=== PATIENT | female | born 1965 | race Caucasian/White ===

== ENCOUNTER 2024-01-10 05:30 | Day surgery (SDC) | payer MEDICARE ==
[~2024-01-10] VITALS: Ht 170.2 cm; Wt 116.8 kg
[~2024-01-10 05:30] MED LIST: AMOX TR-K CLV1 EAC1 PO; ASPIRIN325 MG PO; BENICAR40 MG PO; COREG12.5 MG PO; CRESTOR20 MG PO; DOXYCYCLINE HY100 MG PO; GLUCOPHAGE XR500 MG PO; HYDROCHLOROTH12.5 M1 PO; IBUPROFEN600 MG PO; ISOSORBIDE MONO30 MG PO; LACTATED RINGER'S 1,000 ML IV SCH; LEXAPRO20 MG PO; LIPITOR40 MG PO; LOW DOSE ASPIRI81 MG PO; METOPROLOL SUCC50 MG PO; NEURONTIN100 MG PO; NORVASC5 MG PO; OXYCODON-ACETA1 EAC2 PO; RYBELSUS14 MG PO; ZIAC 2.5-6.25 MG1 EA PO
[2024-01-10 05:55] VITALS: BP 133/65
[2024-01-10] MEDS ORDERED: KETOROLAC TROMETHAMINE 30 MG/ML VIAL ONE ×2 (06:11→06:37)
[2024-01-10] MEDS ORDERED: ACETAMINOPHEN 1,000 MG/100 ML VIAL ONE (06:37)
[2024-01-10] MEDS ORDERED: propofoL 200 MG/20 ML VIAL ONE (06:37)
[2024-01-10] MEDS ORDERED: fentaNYL citrate 100 MCG/2 ML VIAL ONE (06:37)
[2024-01-10] MEDS ORDERED: LIDOCAINE HCL 2% 5 ML SDV ONE (06:37)
[2024-01-10] MEDS ORDERED: ondansetron HCL 4 MG/2 ML VIAL ONE (06:37)
[2024-01-10] MEDS ORDERED: MIDAZOLAM HCL 2 MG/2 ML VIAL ONE (06:54)
[2024-01-10] MEDS ORDERED: IBLOOD GLUCOSE TEST STRIP 1 EA TEST VI PRN ×2 (07:00→07:45)
[2024-01-10] MEDS ORDERED: LIDOCAINE HCL 1% 5 ML SDV INJ ONE (07:00)
[2024-01-10] MEDS ORDERED: CEFAZOLIN SODIUM 2 GM/20 ML SYR IV SCH (07:00)
[2024-01-10] MEDS ORDERED: PHENYLEPHRINE HCL 10 MG/ML VIAL ONE (07:02)
[2024-01-10] MEDS ORDERED: CELECOXIB200 MG PO (07:27)
[2024-01-10] MEDS ORDERED: HYDROCODON-ACE1 EA10 PO (07:28)
[2024-01-10] MEDS ORDERED: HYDROCODONE/ACETA 5/325 TAB PO PRN (07:30)
--- NOTE | 2024-01-10 07:34 | NUR ---
ROUNDS. PT GONE FOR PROCEDURE. PROVIDED PRAYER.
--- NOTE | 2024-01-10 07:43 | NUR ---
01/10/24 0743 Amos,Jacey 0724 PT ARRIVED TO PACU ON 6L VIA MASK, RESP EVEN AND UNLABORED. 0728 PT WAKES TO TACTILE STIMULI AND O2 REMOVED. PT DENIES NAUSEA AND PAIN. 0734 PT ASLEEP AND PERIOD OF APNEA NOTED, O2 DECREASED TO 88%. PT WAKES EASILY AND IS ENCOURAGED TO DEEP BREATHE AND HOB INCREASED SLIGHTLY. RIGHT KNEE ON PILLOW AND ELEVATED SLIGHTLY. 0735 2L NC PLACED DUE TO O2 SAT 86% WHEN ASLEEP AND SMALL AMOUNT OF SNORING NOTED. O2 INCREASED TO HIGH 90S WITH DEEP BREATHING. 0743 PT RESTING AND WAKES OFF AND ON, O2 SAT REMAINS MID TO HIHG 90S ON 2L.
[2024-01-10] MEDS ORDERED: droPERidol 5 MG/2 ML VIAL IV PRN (07:45)
[2024-01-10] MEDS ORDERED: ondansetron HCL 4 MG/2 ML VIAL IV PRN (07:45)
[2024-01-10] MEDS ORDERED: fentaNYL citrate 100 MCG/2 ML VIAL IV PRN (07:45)
[2024-01-10] MEDS ORDERED: PROCHLORPERAZINE EDISYLATE 10 MG/2 ML VIAL IV PRN (07:45)
[2024-01-10] MEDS ORDERED: HYDROmorphone HCL 1 MG/ML SYR IV PRN (07:45)
[2024-01-10] MEDS ORDERED: NALOXONE HCL 0.4 MG SYR IV PRN (07:45)
[2024-01-10 07:56] VITALS: BP 122/57
[2024-01-10] MEDS ORDERED: CELECOXIB 200 MG CAP PO SCH (08:00)
--- NOTE | 2024-01-10 08:17 | NUR ---
PT ARRIVED BACK TO DAY SURGERY FROM PACU AT APPROX 0755 ON 2L/NC WITH SATURATIONS IN THE UPPER 90'S. OXYGEN TURNED OFF AND MONITOR LEFT IN PLACE TO ENSURE PT IS MAINTAINING ADAQUATE SATURATIONS ON RA. THROUGHOUT ASSESSMENT, PTS SATURATIONS WERE STABLE AT 94% OR GREATER. REPORT RECEIVED FROM FIELD COURT RESEARCHER JIM. 2ML EBL. DRESSINGS VISUALIZED WITH FIELD COURT RESEARCHER. INCISION IS COVERED WITH ADAPTIC, ABD, AND SECURED W/PARTHA WRAP. NO SIGNS OF BLEEDING OBSERVED ON DRESSING. NO PAIN REPORTED. PT GIVEN ORDERED CELEBREX, ICE WATER, AND APPLESAUCE. CALL LIGHT LEFT WITHIN PTS REACH. PT DENIES URGE TO VOID. RLE IS ELEVATED ON PILLOWS IN BED WITH RLE AT HEART LEVEL.
[2024-01-10 08:48] VITALS: BP 123/64
--- NOTE | 2024-01-10 08:51 | NUR ---
IN PT ROOM FOR ASSESSMENT AND VS. PT REPORTS NO PAIN OR NAUSEA AT THIS TIME. PT REMAINS ON RA W/O2 >90% VIA CONT. PULSE OX. PT RESPIRATIONS ARE EVEN AND UNLABORED. PT SON IN ROOM AT BEDSIDE AT THIS TIME. PT IS A&O. DRESSING REMAINS C/D/I, NO SIGNS OF BLEEDING AT THIS TIME. PT TOLERATED ORAL APPLESAUCE AND ICE WATER W/OUT DIFFICULTY SWALLOWING. PT REPORTS NO NEED TO URINE VOID AT THIS TIME, ICE WATER REFILLED, PT ENCOURAGED TO ORAL INTAKE. CALL LIGHT WITHIN REACH, NO FURTHER NEEDS AT THIS TIME.
--- NOTE | 2024-01-10 09:20 | NUR ---
PT PRESSES CALL LIGHT IN REPORT OF NEED TO VOID, THIS RN HAS PT SIT AT BEDSIDE. PT REPORTS NO NAUSEA OR DIZZINESS, PT STANDS AT BEDSIDE AND REPORTS NO NEW NAUSEA/DIZZINESS. THIS RN STANDBY ASSIST W/PT TO RESTROOM FOR URINE VOID OF 100 ML CLEAR/YELLOW URINE. PT GAIT IS STEADY. PT STATES NO NEW PAIN POST AMBULATION AND NO NEW SIGNS OF BLEEDING AT THIS TIME. CALL LIGHT WITHIN REACH, PT GETTING DRESSED AT THIS TIME.
[2024-01-10 09:33] VITALS: BP 129/63
--- NOTE | 2024-01-10 09:45 | NUR ---
IN PT ROOM FOR DISCHARGE EDUCATION AND VS. PT REPORTS NO PAIN OR NAUSEA AT THIS TIME. VS TAKEN. DISCHARGE EDUCATION PROVIDED, PT STATES NO FURTHER QUESTIONS AT THIS TIME. PT OFF OF UNIT VIA WC TO PASSENGER SIDE OF SON'S VEHICLE. STANDBY ASSIST PT INTO VEHICLE. ALL BELONGINGS IN PT POSSESSION AT THIS TIME. PT REPORTS NO FURTHER QUESTIONS OR NEEDS AT THIS TIME.
--- NOTE | 2024-01-13 07:20 | OR ---
[facility] [address] [place], [place] [address] Signed DATE OF OPERATION: 01/10/2024 SURGEON: Navya Cyr MD PREOPERATIVE DIAGNOSIS: Medial meniscus tear, right knee. POSTOPERATIVE DIAGNOSIS: Grade 4 chondromalacia, right lateral tibial plateau. PROCEDURE PERFORMED: Right knee arthroscopy with debridement of chondral flaps, tibia. FIELD CARE ADVOCATE: None. ANESTHESIA: General. BLOOD LOSS: Minimal. BRIEF HISTORY: Brittany is a 59-year-old female with pain and giving out in her knee. MRI was suggestive of posteromedial meniscus tear. Risks and benefits of operative treatment were discussed with her after nonoperative treatment had failed to control her symptoms. She elected to proceed. DESCRIPTION OF PROCEDURE: Once consent was obtained, she was taken to the operating room. After adequate anesthesia, she was placed on operating room table. The left leg was flexed, abducted and externally rotated on a well-padded leg irving. The right was placed in well-padded proximal thigh leg irving with no tourniquet. The leg was then prepped and draped in a standard sterile fashion. Portal sites were injected with 0.25% Marcaine with epinephrine. The standard inferolateral and superolateral portals were made and the scope was introduced in the knee. ARTHROSCOPIC FINDINGS: Moderate synovitis was noted throughout the knee. The patella was noted to be tilted laterally just a bit. The chondral surfaces were relatively intact. Medial and lateral Electronically Signed By: NAVYA CYR MD 01/13/24 0720 PATIENT NAME: BRITTANY CONCEPCION OPERATIVE REPORT DATE OF : 67 REPORT #: [id number] PHYSICIAN: NAVYA CYR MD PCP: MICHAEL STAHL MD REPORT IS CONFIDENTIAL AND NOT TO BE RELEASED WITHOUT AUTHORIZATION [facility] [address] [place], [place] [address] Signed gutters were clear. ACL and PCL were intact. Medial compartment showed no meniscus tear and no significant chondromalacia. The lateral compartment showed grade 4 chondromalacia to the tibia with large posterior based flaps. The meniscus was intact. The femur showed grade 1 softening. DESCRIPTION OF OPERATION: Standard inferomedial portal was made after localization using a needle. The diagnostic arthroscopy was undertaken and the medial meniscus was visualized and palpated using the [place] on both the superior and undersurfaces. No meniscus tear was identified. The large chondral flaps on the tibial side were unstable and likely the cause of her symptoms. These were removed using the shaver. Again, the lateral meniscus was visualized and palpated and no meniscus tear was noted. The scope was withdrawn after cleaning all debris from the knee. The portals were closed with 3-0 nylon and the knee was injected with 60 mg of Toradol. The wounds were then dressed with Adaptic, ABD, and Gage wrap. She tolerated the procedure well. All sponge, needle, and instrument counts were correct. Navya Cyr MD BA/MODL /[id number] Copies: ~ Electronically Signed By: NAVYA CYR MD 01/13/24 0720 PATIENT NAME: BRITTANY CONCEPCION OPERATIVE REPORT DATE OF : 67 REPORT #: [id number] PHYSICIAN: NAVYA CYR MD PCP: MICHAEL STAHL MD REPORT IS CONFIDENTIAL AND NOT TO BE RELEASED WITHOUT AUTHORIZATION
== END 2024-01-10 09:45 | disposition home or self-care (01) ==
LOC: DS 05:30
PROVIDERS: ATTEND Specialist
PROC: 0SBC4ZZ Excision of Right Knee Joint, Percutaneous Endoscopic Approach (ICD-10-PCS; principal; 2024-01-10 07:00)
DX: S83.241A Other tear of medial meniscus, current injury, right knee, initial encounter (principal); E11.9 Type 2 diabetes mellitus without complications; I10 Essential (primary) hypertension
CPT/HCPCS: 01400; J0131; J0690; J1885; J2001; J2250; J2371; J2405; J2704; J3010; J7121

== ENCOUNTER 2024-01-18 15:13 | Emergency (ER) | payer MEDICARE ==
[~2024-01-18] VITALS: Ht 170.2 cm; Wt 116.1 kg
[~2024-01-18 15:13] MED LIST changes: +CELECOXIB200 MG PO; +HYDROCODON-ACE1 EA10 PO; -LACTATED RINGER'S 1,000 ML IV SCH
[2024-01-18] MEDS ORDERED: HYDROCODONE/ACETA 7.5/325 TAB PO ONE (19:15)
[2024-01-18] MEDS ORDERED: IBUPROFEN 400 MG TAB PO ONE (19:15)
[2024-01-18 19:31] VITALS: BP 132/90
== END 2024-01-18 19:31 | disposition home or self-care (01) ==
LOC: ED 15:13
DX: S80.01XA Contusion of right knee, initial encounter (principal); S40.012A Contusion of left shoulder, initial encounter; W10.9XXA Fall (on) (from) unspecified stairs and steps, initial encounter; I10 Essential (primary) hypertension; E78.5 Hyperlipidemia, unspecified; Z79.899 Other long term (current) drug therapy; Z91.040 Latex allergy status
CPT/HCPCS: 73030; 73560; A9270

== ENCOUNTER 2024-05-15 15:00 | Emergency (ER) | payer MEDICARE ==
[~2024-05-15] VITALS: Ht 170.2 cm; Wt 122.3 kg
[~2024-05-15 15:00] MED LIST changes: -HYDROCHLOROTH12.5 M1 PO; +HYDROCHLOROTHIA25 MG PO
--- OUTSIDE RECORDS SUMMARY | 2024-05-15 15:01 | XMS ---
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 ENiecy VISIT COUNT (12 MO.) 2 ANIVAL Marcelo TOTAL 2 NOTE: Visits indicate total known visits. ED/UCC VISIT TRACKING (12 MO.) 05/15/2024 15:00 [facility] TYPE: Emergency COMPLAINT: - L ABD PAIN 01/18/2024 15:13 [facility] TYPE: Emergency COMPLAINT: - FALL DIAGNOSES: - Contusion of left shoulder, initial encounter - Contusion of right knee, initial encounter - Essential (primary) hypertension - Fall (on) (from) unspecified stairs and steps, initial encounter - Hyperlipidemia, unspecified - Latex allergy status - Other usp (current) drug therapy - Pain in right knee INPATIENT VISIT TRACKING (12 MO.) No inpatient visits to display in this time frame [email or web address]
[2024-05-15] MEDS ORDERED: VALTREX1000 MG PO (15:25)
[2024-05-15] MEDS ORDERED: CYCLOBENZAPRINE10 MG PO (15:28)
[2024-05-15 15:40] VITALS: BP 172/94
== END 2024-05-15 15:40 | disposition home or self-care (01) ==
LOC: ED 15:00
DX: R20.2 Paresthesia of skin (principal); I10 Essential (primary) hypertension; E78.5 Hyperlipidemia, unspecified; F41.9 Anxiety disorder, unspecified; Z91.040 Latex allergy status; Z79.899 Other long term (current) drug therapy
CPT/HCPCS: 99283

== ENCOUNTER 2024-07-21 21:00 | Emergency (ER) | payer MEDICARE ==
[~2024-07-21] VITALS: Ht 170.2 cm; Wt 122.6 kg
[~2024-07-21 21:00] MED LIST changes: +CYCLOBENZAPRINE10 MG PO; +VALTREX1000 MG PO
[2024-07-21] MEDS ORDERED: DEXAMETHASONE SOD PHOS 10 MG/ML VIAL IM ONE (21:30)
[2024-07-21] MEDS ORDERED: METHYLPREDNISOLO4 M1 PO (21:36)
[2024-07-21] MEDS ORDERED: ACETAMINOPHEN 500 MG TAB PO ONE (21:45)
[2024-07-21 22:18] VITALS: BP 142/78
== END 2024-07-21 22:19 | disposition home or self-care (01) ==
LOC: ED 21:00
DX: G56.22 Lesion of ulnar nerve, left upper limb (principal); I10 Essential (primary) hypertension; Z91.040 Latex allergy status; Z79.899 Other long term (current) drug therapy
CPT/HCPCS: 73080; 96372; 99283-25; A9270; J1100

== ENCOUNTER 2024-11-16 18:13 | Emergency (ER) | payer MEDICARE ==
[~2024-11-16] VITALS: Ht 170.2 cm; Wt 118.2 kg
[~2024-11-16 18:13] MED LIST changes: +METHYLPREDNISOLO4 M1 PO
[2024-11-16] MEDS ORDERED: OXYCODONE/APAP 5/325 TAB PO ONE (21:00)
[2024-11-16] MEDS ORDERED: GABAPENTIN100 MG PO (21:30)
[2024-11-16] MEDS ORDERED: HYDROCODON-ACE1 EA10 PO (22:22)
[2024-11-16] MEDS ORDERED: HYDROCODONE BIT/ACETAMINOPHEN 5/325 MG 1 TAB HOME.PACK PO ONE (22:30)
[2024-11-16 23:31] VITALS: BP 155/86
== END 2024-11-16 23:45 | disposition home or self-care (01) ==
LOC: ED 18:13
DX: S82.842A Displaced bimalleolar fracture of left lower leg, initial encounter for closed fracture (principal); W18.39XA Other fall on same level, initial encounter; I10 Essential (primary) hypertension; E78.5 Hyperlipidemia, unspecified; Z91.040 Latex allergy status; Z79.899 Other long term (current) drug therapy
CPT/HCPCS: 29515; 73610; 73700; 99284-25; A9270

== ENCOUNTER 2024-11-23 09:45 | Day surgery (SDC) | payer MEDICARE ==
[~2024-11-23] VITALS: Ht 167.6 cm; Wt 118.2 kg
[~2024-11-23 09:45] MED LIST changes: +ASPIRIN81 MG PO; +CEFAZOLIN SODIUM 2 GM/20 ML SYR IV SCH; +GABAPENTIN 600 MG TAB PO SCH; +GABAPENTIN100 MG PO; +IBLOOD GLUCOSE TEST STRIP 1 EA TEST VI PRN; +LACTATED RINGER'S 1,000 ML IV SCH; +LIDOCAINE HCL 1% 5 ML SDV INJ ONE; +OXYCODONE HCL5 MG PO
[2024-11-23 10:07] VITALS: BP 126/62
[2024-11-23] MEDS ORDERED: LIDOCAINE HCL 2% 5 ML SDV ONE ×2 (10:26→11:04)
[2024-11-23] MEDS ORDERED: DEXAMETHASONE SOD PHOS 4 MG/ML VIAL ONE ×2 (10:26→11:04)
[2024-11-23] MEDS ORDERED: MIDAZOLAM HCL 2 MG/2 ML VIAL ONE (10:26)
[2024-11-23] MEDS ORDERED: Ropivacaine HCl 0.5% 30 ML VIAL ONE (10:26)
[2024-11-23 10:37] LABS: BASOPHILS 0.8 % (0-2); EOSINOPHILS 5.9 % (0-6); HEMATOCRIT 39.4 % (35.0-50.0); HEMOGLOBIN 13.6 g/dL (12.0-18.0); LYMPHOCYTES 21.1 % (24-44); MCH 31.7 (27-36); MCHC 34.5 g/dl (30-36); MCV 92.1 fl (81-99); MONOCYTES 7.8 % (0-12); NEUTROPHILS 64.4 % (39-80); PLATELET COUNT 248 K/uL (140-440); RBC 4.28 M/ul (4.3-5.7); RDW 12.6 (10.5-15.0)
[2024-11-23 10:52] LABS: ALBUMIN 2.8 g/dL (3.4-5.0); ALBUMIN/GLOBULIN RATIO 0.61 (1.1-2.4); ANION GAP 11.5 (7-21); BILIRUBIN, TOTAL 0.5 ng/dL (0.2-1.0); BUN/CREATININE RATIO 18.86 (6.0-28.6); CALCIUM 9.4 mg/dL (8.5-10.1); CREATININE, SERUM 1.06 mg/dL (0.55-1.02); POTASSIUM 4.5 mmol/L (3.5-5.1); PROTEIN, TOTAL 7.4 g/dL (6.4-8.2)
[2024-11-23] MEDS ORDERED: propofoL 200 MG/20 ML VIAL ONE (11:04)
[2024-11-23] MEDS ORDERED: KETOROLAC TROMETHAMINE 30 MG/ML VIAL ONE (11:04)
[2024-11-23] MEDS ORDERED: ondansetron HCL 4 MG/2 ML VIAL ONE (11:04)
[2024-11-23] MEDS ORDERED: HYDROCODONE/ACETA 7.5/325 TAB PO PRN (11:45)
--- NOTE | 2024-11-23 11:48 | NUR ---
VERBAL ORDER RECEIVED FROM DR. TRISTAN TO ADD HGBA1C TO LABS ORDERED. ORDER PLACED. CALLED LAB TO VERIFY THAT LAB COULD BE ADDED ON AND EXISTING BLOOD COULD BE USED TO RUN LAB. LAB VERIFIED THEY COULD. DR. TRISTAN NOTIFIED.
[2024-11-23] MEDS ORDERED: fentaNYL citrate 100 MCG/2 ML VIAL ONE (12:10)
--- NOTE | 2024-11-23 13:07 | NUR ---
11/23/24 1307 Telma Trujillo PATIENT IS ROUSING UPON ARRIVAL TO PACU. SHE OPENS HER MOUTH FOR THE ORAL AIRWAY TO BE REMOVED. SHE RESTS QUIETLY, WITH HER EYES CLOSED WHEN UNSTIMULATED.
[2024-11-23] MEDS ORDERED: OXYCODONE HCL5 MG PO (13:08)
[2024-11-23 13:37] VITALS: BP 151/77
--- NOTE | 2024-11-23 13:40 | NUR ---
Patient returns to unit via bed from PACU. Report taken from KAY Hollis. Patient is awake and oriented. She denies any pain or any nausea. Water and crackers provided to patient. Vital signs obtained and WDL. Dressing in place to left lower leg. Capillary refill less than 3 seconds to left toes. Patient reports tingling to her toes and can feel pressure when I touch them. She is able to wiggle her toes slightly. Bed in lowest position, call light within reach. patient denies any needs at this time.
[2024-11-23 14:35] VITALS: BP 140/67
--- NOTE | 2024-11-23 15:09 | NUR ---
1436-PT LAYING IN BED. RESP EVEN AND UNLABORED. DENIES PAIN AND NAUSEA. PT HAS ICE PACK IN PLACE. DISCUSSED WEIGHT BEARING STATUS. PT STATES SHE HAS A WALKER AND SCOOTER. PT WOULD LIKE INFORMATION ON HOW TO AMBULATE WITH WALKER AND BEING TOE TOUCH. AT BEDSIDE. CALL LIGTH WITHIN REACH. 1440-PHONE CALL TO DR TRISTAN WITH UPDATE. VO FOR A PT CONSULT. 1500-PT IN ROOM WITH PT.
[2024-11-23 15:41] VITALS: BP 135/69
--- NOTE | 2024-11-23 16:14 | NUR ---
1541-PT LAYING IN BED. RESP EVEN AND UNLABORED. DENIES PAIN AND NAUSEA. PT HAS ICE PACK IN PLACE. PT IS READY TO GO HOME. IN ROOM TO HELP PT GET DRESSED. WALKER AT BEDSIDE TO ASSIST.
--- NOTE | 2024-11-23 16:15 | NUR ---
1555-WENT OVER DISCHARGE INSTRUCTIONS WITH PT. WENT OVER POSTOP MEDICATION. ALL QUESTIONS ANSWERED. 1558-PT TRANSFERS SELF FROM BED TO WHEELCHAIR. RIDE PROVIDED TO FRONT OF HOSPITAL WHERE IS WAITING WITH THE CAR. PT TRANSFERS SELF FROM WHEELCHAIR TO CAR.
[2024-11-23] MEDS ORDERED: SEVOFLURANE 250 ML BTL INH ONE (16:58)
--- NOTE | 2024-11-24 06:39 | OR ---
[facility] [address] [facility] [place], [place] [address] Signed DATE OF OPERATION: 11/23/2024 SURGEON: Navya Cyr MD PREOPERATIVE DIAGNOSIS: Bimalleolar ankle fracture, left. POSTOPERATIVE DIAGNOSIS: Bimalleolar ankle fracture, left. PROCEDURE PERFORMED: Open reduction and internal fixation, bimalleolar ankle fracture. BELT LOOP MACHINE OPERATOR: Angie Renteria PA-C. ANESTHESIA: General. BLOOD LOSS: None. TOURNIQUET TIME: 43 minutes. IMPLANTS: Six hole 1/3rd tubular plate with six screws and a 42 mm Synthes headless screw and K-wire put medially. BRIEF HISTORY: Brittany is a 59-year-old female with history of a ground level fall, bimalleolar ankle fracture. Risks, benefits, and alternatives of surgery were discussed with her. On arrival today, her blood sugar showed about 300. A1c was found to be 12.4. We elected to go ahead and proceed with the surgery as it had to be fixed. Risks, benefits, alternatives were discussed and she elected to proceed. DESCRIPTION OF PROCEDURE: Once consent was obtained she was taken to the operating room, placed on the operating table. All downside pressure points were well padded. A well-padded proximal thigh tourniquet was placed. The leg was prepped and draped in a standard sterile fashion. Electronically Signed By: NAVYA CYR MD 11/24/24 0639 PATIENT NAME: BRITTANY CONCEPCION OPERATIVE REPORT DATE OF : 67 REPORT #: [id number] PHYSICIAN: NAVYA CYR MD PCP: MICHAEL STAHL MD REPORT IS CONFIDENTIAL AND NOT TO BE RELEASED WITHOUT AUTHORIZATION [facility] [address] [place], [place] [address] Signed It was exsanguinated using Esmarch bandage and tourniquet inflated to 250 mmHg. The lateral side was approached first through a standard lateral midline incision. This was carried through skin and subcutaneous tissue. The fibula was dissected free of all soft tissue anteriorly and posteriorly and the fracture was reduced. A six hole locking plate was then fashioned to the distal fibula under image intensifier guidance. This was held in place with the central screw and adjustments were made. The two locking screws were placed in the distal fragment, four total nonlocking screws were placed proximally. Excellent reduction was obtained. Her bone quality was actually good. The wound was copiously irrigated and closed with 2-0 Monocryl and maco. The lateral side was approached through a straight midline incision. This was carried through skin and subcutaneous tissue. The fracture was distracted and the anterior periosteum was removed. Then it was reduced again under image intensifier guidance using a dental pick and malleolar clamp. Once adequate reduction was obtained, the two 1.4 pins were placed in it. The fragment was fairly small. We then overdrilled the anterior pin and placed a 40 headless screw. The posterior portion was too small. I was afraid we would break the fragment. We elected then to cut the pin, bent it and impacted it proximal such that end of the pin was bent into the screw head. The wound was then copiously irrigated with normal saline, closed again with 2-0 Monocryl and maco. Both wounds were dressed with Allevyn dressing and Gage wrap. She was placed back into a fracture boot. She tolerated the procedure well. All sponge, needle, and instrument counts were correct. Navya Cyr MD BA/VIRAL /[id number] Copies: ~ Electronically Signed By: NAVYA CYR MD 11/24/24 0639 PATIENT NAME: BRITTANY CONCEPCION OPERATIVE REPORT DATE OF : 67 REPORT #: [id number] PHYSICIAN: NAVYA CYR MD PCP: MICHAEL STAHL MD REPORT IS CONFIDENTIAL AND NOT TO BE RELEASED WITHOUT AUTHORIZATION
--- NOTE | 2024-11-25 20:21 | EKG ---
[facility] [address] [facility] [place] [address] Signed Normal sinus rhythm Low voltage QRS Cannot rule out Anteroseptal infarct (cited on or before 20-AUG-2016) Abnormal ECG When compared with ECG of 20-DEC-2023 08:19, Questionable change in initial forces of Anterior leads T wave amplitude has increased in Lateral leads Confirmed by Ryland Rinaldi DO ([id number]) on 11/25/2024 8:21:36 PM Electronically Signed By: RYLAND RINALDI DO 11/25/242020 PATIENT NAME: LEONARD CONCEPCION Electrocardiogram DATE OF : 67 PHYSICIAN: RYLAND RINALDI DO REPORT #: [id number] REPORT IS CONFIDENTIAL AND NOT TO BE RELEASED WITHOUT AUTHORIZATION
== END 2024-11-23 15:58 | disposition home or self-care (01) ==
LOC: DS 09:45
PROVIDERS: ATTEND Specialist
DX: S82.842A Displaced bimalleolar fracture of left lower leg, initial encounter for closed fracture (principal); I10 Essential (primary) hypertension; E11.9 Type 2 diabetes mellitus without complications; Z79.899 Other long term (current) drug therapy; W18.30XA Fall on same level, unspecified, initial encounter
CPT/HCPCS: 01480; 36415; 64445; 64447; 73600; 76942; 80053; 83036; 85025; 93005; 93010; 97161; A9270; C1713; C1769; J0690; J1100; J1885; J2003; J2250; J2405; J2704; J2795; J3010; J7121